=== PATIENT | male | born 1990 | race Two or more races ===

== ENCOUNTER 2023-10-05 11:49 | Outpatient (REF) | payer MEDICAID, SELFPAY ==
[2023-10-05 14:17] LABS: MANUAL DIFF FLAG NO
[2023-10-05 14:22] LABS: Basophils Percent Auto 0.5 % (0-2); Eosinophils Absolute Auto 0.1 X10*3/uL (0.0-0.4); Eosinophils Percent Auto 1.4 % (0-4); Hematocrit 43.1 % (42.0-52.0); Hemoglobin 14.4 g/dl (14.0-18.0); Imm Gran Abs Auto 0.02 X10*3/uL (0.00-0.03); Imm Gran Pct Auto 0.3 % (0.0-0.4); Lymphocytes Percent Auto 25.3 % (20-40); Mean Corpuscular HGB Conc 33.4 g/dl (31.0-36.0); Mean Corpuscular Hemoglobin 30.4 pg (27.0-33.0); Mean Corpuscular Volume 90.9 fL (80.0-98.0); Mean Platelet Volume 9.5 fL (9.4-12.4); Monocytes Absolute Auto 0.4 X10*3/uL (0.1-1.2); Neutrophils Absolute Auto 5.3 x10*3/uL (2.0-8.3); Neutrophils Percent Auto 67.5 % (45-73); Platelet Count 317 X10*3/uL (160-400); Red Blood Count 4.74 X10*6/uL (4.60-5.80); Red Cell Distribution Width 13.8 % (11.0-16.0); White Blood Count 7.8 X10*3/uL (4.8-10.8)
[2023-10-05 16:11] LABS: Alanine Aminotransferase 63 U/L (0-40); Albumin Level 4.2 g/dL (3.5-5.0); Alkaline Phosphatase 56 U/L (39-117); Anion Gap 14 (12-20); Aspartate Amino Transferase 35 U/L (5-37); Bilirubin Total 0.4 mg/dL (0.0-1.0); Blood Urea Nitrogen 13 mg/dL (9-16); Calcium 9.2 mg/dL (8.4-10.2); Carbon Dioxide 27 mmol/L (22-29); Chloride 104 mmol/L (96-108); Estimated Glomerular Filt Rate > 60; Glucose Random 82 mg/dL (60-115); Potassium 3.8 mmol/L (3.3-5.1); Sodium 141 mmol/L (135-145); Total Protein 7.2 g/dL (6.5-8.0)
== END 2023-10-05 11:50 | disposition home or self-care (01) ==
LOC: HO.CHCLDS 11:49
PROVIDERS: Visit Provider Internal Medicine
DX: F19.10 Other psychoactive substance abuse, uncomplicated (principal); D50.9 Iron deficiency anemia, unspecified
CPT/HCPCS: 36415; 80053; 83735; 85025

== ENCOUNTER 2024-03-01 12:42 | Outpatient (REF) | payer MEDICAID, SELFPAY ==
[2024-03-01 15:47] LABS: Alanine Aminotransferase 56 U/L (0-40); Alkaline Phosphatase 56 U/L (39-117); Anion Gap 13 (12-20); Aspartate Amino Transferase 64 U/L (5-37); Bilirubin Direct 0.2 mg/dL (0.0-0.5); Bilirubin Total 0.5 mg/dL (0.0-1.0); Blood Urea Nitrogen 8 mg/dL (9-16); C Reactive Protein 0.18 mg/dL (< or = 0.50); Calcium 9.5 mg/dL (8.4-10.2); Carbon Dioxide 28 mmol/L (22-29); Chloride 108 mmol/L (96-108); Cholesterol 208 mg/dL (<200); Estimated Glomerular Filt Rate > 60; Glucose Fasting 79 mg/dL (60-99); HDL Cholesterol 60 mg/dL (>40); LDL Cholesterol Calculated 107 mg/dL (<100); Potassium 3.7 mmol/L (3.3-5.1); Sodium 145 mmol/L (135-145); Total Protein 6.9 g/dL (6.5-8.0); Triglycerides 209 mg/dL (<150); Uric Acid 11.1 mg/dL (3.4-7.0)
[2024-03-01 15:58] LABS: TSH reflex Free T4 0.42 uIU/mL (0.32-4.0)
== END 2024-03-01 12:43 | disposition home or self-care (01) ==
LOC: HO.CHCLDS 12:42
PROVIDERS: Visit Provider Pediatrics
DX: M10.00 Idiopathic gout, unspecified site (principal); I10 Essential (primary) hypertension; R74.01 Elevation of levels of liver transaminase levels
CPT/HCPCS: 36415; 80048; 80061; 80076; 84443; 84550; 86140

== ENCOUNTER 2024-09-21 15:47 | Outpatient (REF) | payer MEDICAID, SELFPAY ==
--- OUTSIDE RECORDS SUMMARY | 2024-09-21 16:44 | XMS_ITS | Encounter Summary ---
Author Organization [employer] Address [address] [facility] [address] 7t [place] [address] Care Team Providers Care Apprentice Carpenter Name Role Phone Bertha Ryan MD Primary Care Provider [phone] Yari Johnson Unavailable Unavailable Alana Gonsalez RN Unavailable [phone] Encounter Details Date Type Department Care Team (Latest Contact Info) Description 08/30/2024 Travel Social History Tobacco Use Types Packs/Day Years Used Date Smoking Tobacco: Never Passive Smoke Exposure: Never Smokeless Tobacco: Never Alcohol Use Standard Drinks/Week Comments Defer 0 (1 standard drink = 0.6 oz pur e alcohol) Alcohol Answer Date Recorded How often do you have a drink containing alcohol ? 4 10/07/2023 How many drinks containing a lcohol do you have on a typical day when you are drinking? 2 10/07/2023 How often do you have six or more drinks on one occasion? 2 10/07/2023 Depression Answer Date Recorded Patient Health Questionnaire-9 Score 3 10/28/2023 Patient Health Questionnaire-9 Score 3 10/28/2023 Last PHQ-9: Questionnaire Data Not on file 0 10/28/2023 Housing Stability Answer Date Recorded What is your housing situation today? I do not have housing (Staying with others, in a hotel, in a [place] [facility] [place], living outside on the street, on a beach, in a car, or in a park 12/01/[address] you li ve. Do you have problems with any of the following? Water leaks;Oven or stove not working 12/01/2023 Food Insecurity Answer Date Recorded Within the past 12 months, y ou worried that your food would run out before you got money to buy more: Often true 12/01/2023 Within the past 12 months,th e food you bought just didn't last and you didn't have enough money to get more: Often true 08/2023 Transportation Answer Date Recorded In the past 12 months, has l ack of transportation kept you from medical appts, meetings, work or from getting things needed for daily living? Yes, it has kept me from medical appointments or getting medications. 12/01/2023 Utilities Answer Date Recorded In the past 12 months, has t he electric, gas, oil or water company threatened to shut off services in your home? I am not sure 12/01/2023 Depression Answer Date Recorded Patient Health Questionnaire-2 Score 0 10/28/2023 Sex and Gender Information Value Date Recorded Sex Assigned at Male 09/09/2023 2:09 PM EST Legal Sex Male 2:07 PM EST Gender Identity Male 09/09/2023 2:09 PM EST Sexual Orientation Straight 10/05/2023 10 :33 AM EST documented as of this encounter Plan of Treatment Upcoming Encounters Date Type Department Care Team (Late st Contact Info) Description 10/06/2024 1:00 PM EST Office Visit [facility] [address] [place] [address] Armin Carter MD [address] [place] [address] documented as of this encounter Visit Diagnoses Not on filedocumented in this encounter Additional Health Concerns Assessment Noted Time PHQ-9 Depression Total Score: 3 10/28/19 24 9:38 AM EDT documented as of this encounter Care Teams Apprentice Carpenter Relationship Specialty Start Date End Date Bertha Ryan MD [address] [place] [address] PCP - General Internal Medicine 10/28/23 Yari Johnson Community Health Worker 01/03/24 Alana Gonsalez, BRODY [address] [place] [address] Quarry Manager 01/03/24 Corby Duran Quarry ManagerFuse Cutter 04/26/24 documented as of this encounter
--- OUTSIDE RECORDS SUMMARY | 2024-09-21 16:44 | XMS_ITS | Encounter Summary ---
Author Organization [employer] Address 75 [facility] 7t [place] [address] Care Team Providers Care Sourcing Specialist Name Role Phone Bertha Ryan MD Primary Care Provider Yari Johnson Unavailable Unavailable Alana Gonsalez RN Unavailable [phone] Reason for Referral * Consultation (Routine) - Closed Specialty Diagnoses / Procedures Referred By Contac t Referred To Contact Behavioral Health Diagnoses Alcohol use, unspecified, uncomplicated Anxiety Bertha Ryan MD [address] [place] [address] Phone: tel: fax: Referral ID Status Reason Start Date Expiration Date V isits Requested Visits Authorized [id number] Closed Specialty Services Required 08/30/2024 08/30/2025 1 1 Encounter Details Date Type Department Care Team (Late st Contact Info) Description 08/30/2024 11:30 AM EST Office Visit [facility] [address] [place] [address] Bertha Ryan MD [address] [place] [address] Anterior shoulder pain (Primary Dx); Seizure disorder (CMS/HCC); Patent foramen ovale; Dietary counseling; Exercise counseling; Alcohol use, unspecified, uncomplicated; Anxiety Social History Tobacco Use Types Packs/Day Years [...] with others, in a hotel, in a [facility], living outside on the street, on a [...] AM EST documented as of this encounter Last Filed Vital Signs Vital Sign Reading Time Taken Comments Blood Pressure 149/99 08/30/2024 11:35 AM EST Pulse 97 08/30/2024 11:35 AM EST Temperature 37.1 ??C (98.8 ??F) 08/30/2024 11:[address] Respiratory Rate 20 08/30/2024 11:35 AM EST Oxygen Saturation 96% 08/30/2024 11:35 AM EST Inhaled Oxygen Concentration - - Weight 124 kg (274 lb) 08/30/2024 11:35 AM EST Height 171.1 cm (5' 7.38 ) 08/30/2024 11:[address] Body Mass Index 42.43 08/30/2024 11:35 AM EST documented in this encounter Progress Notes * Bertha Ryan MD - 08/30/2024 11:30 AM EST Subjective Patient ID: Ronnell Graves is a 34 y.o. male who presents for follow up. Ronnell is a 34 y/o male patient of mine here for follow up.Doing well with oral naltrexone for alcoholism.Seeing at [facility]. Sees neuro in 2 days for SZD.No seizures since on keppra.Needs his labs drawn. BP log from home reviewed. Mostly in range while on 20 mg lisinopril daily.Lost some weight since not drinking heavily any longer.C/O left anterior shoulder pain since his fall after his first seizure episode months ago.Taking tylenol prn which helps. 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 HENT: Negative for trouble swallowing. Respiratory: Negative for cough, shortness of breath and wheezing. Cardiovascular: Negative for chest pain, palpitations and leg swelling. Gastrointestinal: Negative for abdominal pain and blood in stool. Endocrine: Negative for polydipsia and polyuria. Genitourinary: Negative for decreased urine volume, difficulty urinating, dysuria and hematuria. Musculoskeletal: Positive for arthralgias. Negative for gait problem. Skin: Negative for color change and rash. Neurological: Negative for dizziness and headaches. Hematological: Negative for adenopathy. Psychiatric/Behavioral: Negative for dysphoric mood, hallucinations, sleep disturbance and suicidalideas. The patient is nervous/anxious. Objective BP (!) 149/99 (BP Location: Left arm, Patient Position: Sitting, BP Cuff Size: Large adult) Pulse 97 Temp 98.8 ??F (37.1 ??C) (Oral) Resp 20 Ht 5' 7.38 (1.711 m) Wt 274 lb (124 kg) SpO2 96% BMI 42.43 kg/m?? Physical Exam Vitals reviewed. Cardiovascular: Heart sounds: Normal heart sounds. Pulmonary: Effort: Pulmonary effort is normal. Breath sounds: Normal breath sounds. Musculoskeletal: Left shoulder: Tenderness present. No crepitus. Decreased range of motion. Right lower leg: No edema. Left lower leg: No edema. Neurological: Mental Status: He is alert. Assessment/Plan Diagnoses and all orders for this visit: Anterior shoulder pain Comments: Since his fall after his seizure episode.Xray ordered today to rule out fracture.Exam shows anterior tenderness and limited ROM. Refill tylenol prn. Refer to PT/ortho depending on results and response to meds. Etc.. Orders: - XR Shoulder 2+ Views Left; Future Seizure disorder (CMS/HCC) Comments: Denies any more episodes since on meds.Needs labs drawn today,has neurology visit in 2 days,plans to keep visit. Patent foramen ovale Dietary counseling Exercise counseling Alcohol use, unspecified, uncomplicated Comments: Seeing , doing great on oral naltrexone.From large amount of hard liquor to maybe 1 beer every other day.Denies withdrawal symtoms.Agrees to behavior therapist referral. Orders: - Referral to Behavioral Health; Future Anxiety Comments: Referral to Behavior therapist done today. Orders: - Referral to Behavioral Health; Future documented in this encounter Plan of Treatment Upcoming Encounters Date Type Department Care Team (Late st Contact Info) Description 10/06/2024 1:00 PM EST Office Visit [facility] [address] [place] [address] Armin Carter MD [address] [place] [address] Scheduled Orders Name Type Priority Associated Diagnoses Orde r Schedule XR Shoulder 2+ Views Left Imaging Routine Anterior shoulder pain Expected: 08/30/2024, Expires: 08/30/2025 Scheduled Referrals Name Type Priority Associated Diagnoses Order Schedule Referral to Behavioral Health Outpatient Referral Routine Alcohol use, unspecified, uncomplicated Anxiety Expected: 08/30/2024 (Approximate), Expires: 08/30/2025 documented as of this encounter Visit Diagnoses Diagnosis Anterior shoulder pain- Primary Seizure disorder (CMS/HCC) Unspecified epilepsy without mention of intractable epilepsy Patent foramen ovale Ostium secundum type atrial septal defect Dietary counseling Dietary surveillance and counseling Exercise counseling Alcohol use, unspecified, uncomplicated Anxiety Anxiety state, unspecified documented in this encounter Additional Health Concerns Assessment Noted Time PHQ-9 Depression Total Score: 3 10/28/19 9:38 AM EDT documented as of this encounter Care Teams Sourcing Specialist Relationship Specialty Start Date End Date Bertha Ryan MD [address] [place] [address] PCP - General Internal Medicine 10/28/23 Yari Johnson Community Health Worker 01/03/24 Alana Gonsalez RN [address] [place] [address] [employer] Hospitalist 01/03/24 Corby Duran [employer] HospitalistPolicy Analyst 04/26/24 documented as of this encounter
--- OUTSIDE RECORDS SUMMARY | 2024-09-21 16:44 | XMS_ITS | Encounter Summary ---
Author Organization [employer] Address [address] [facility] 7t [place] [address] Care Team Providers Care Grinding Operator Name Role Phone Bertha Ryan MD Primary Care Provider [phone] Yari Johnson Unavailable Unavailable Alana Gonsalez RN Unavailable [phone] Reason for Visit * Reason Comments Med Refill Encounter Details Date Type Department Care Team ([facility] st Contact Info) Description 08/30/2024 Refill [facility] [address] [place] [address] Bertha Ryan MD [address] [place] [address] Social History Tobacco Use Types Packs/Day Years [...] with others, in a hotel, in a custodial, living outside on the street, on a [...] Description 10/06/2024 1:00 PM EST Office Visit [facility] [address] [place] [address] Armin Carter MD [address] [place] [address] documented as of this encounter Visit Diagnoses Not on filedocumented in this encounter Additional Health Concerns Assessment Noted Time PHQ-9 Depression Total Score: 3 10/28/19 24 9:38 AM EDT documented as of this encounter Care Teams Grinding Operator Relationship Specialty Start Date End Date Bertha Ryan MD [address] [place] [address] PCP - General Internal Medicine 10/28/23 Yari Johnson Community Health Worker 01/03/24 Alana Gonsalez RN [address] [place] [phone] Entry Level Accounting Clerk 01/03/24 Corby Duran Entry Level Accounting ClerkWaiter Waitress 04/26/24 documented as of this encounter
--- OUTSIDE RECORDS SUMMARY | 2024-09-21 16:44 | XMS_ITS | Encounter Summary ---
Author Organization [employer] Address 75 [facility] 7t [place] [address] Care Team Providers Care Coastal/Harbor Defense Officer Name Role Phone Bertha Ryan MD Primary Care Provider Yari Johnson Unavailable Unavailable Alana Gonsalez RN Unavailable [phone] Encounter Details Date Type Department Care Team (Late st Contact Info) Description 10/01/2023 Telephone [facility] [address] [place] [address] [phone] Bertha Ryan MD [address] [place] [address] Social History Tobacco Use Types Packs/Day Years Used Date Smoking Tobacco: Never Assessed Sex and Gender Information Value Date Recorded Sex Assigned at Male 09/09/2023 2:09 PM EST Legal Sex Male 2:07 PM EST Gender Identity Male 09/09/2023 2:09 PM EST Sexual Orientation Straight 10/05/2023 10 :33 AM EST documented as of this encounter Miscellaneous Notes * Telephone Encounter - Misha Wills - 10/01/2023 11:21 AM EST Tc from pt stating they received a call but didn't leave a message and publications writer doesn't see anything tasked. documented in this encounter Plan of Treatment Upcoming Encounters Date Type Department Care Team (Late st Contact Info) Description 10/06/2024 1:00 PM EST Office Visit [facility] [address] [place] [address] [phone] Armin Carter MD [address] [place] [address] documented as of this encounter Visit Diagnoses Not on filedocumented in this encounter Care Teams Coastal/Harbor Defense Officer Relationship Specialty Start Date End Date Bertha Ryan MD [address] [place] [address] PCP - General Internal Medicine 10/28/23 Yari Johnson Community Health Worker 01/03/24 Alana Gonsalez, BRODY [address] [place] [address] Intern Product Marketing Manager 01/03/24 Corby Duran Intern Product Marketing ManagerExtractor Plant Operator 04/26/24 documented as of this encounter
--- OUTSIDE RECORDS SUMMARY | 2024-09-21 16:44 | XMS_ITS | Encounter Summary ---
Author Organization [employer] Address 75 [facility] 7t [place] [address] Care Team Providers Care Waste Water Worker Name Role Phone Bertha Ryan MD Primary Care Provider [phone] Yari Johnson Unavailable Unavailable Alana Gonsalez RN Unavailable [phone] Reason for Visit * Reason Comments Med Change Request Encounter Details Date Type Department Care Team ([facility] Contact Info) Description 10/28/2023 Refill [facility] [address] [place], [place] [phone] Bertha Ryan MD [address] [place] [address] Social History Tobacco Use Types Packs/Day Years Used Date Smoking Tobacco: Never Smokeless Tobacco: Never Alcohol Use Standard [...] What is your housing situation today? I have bella patel 10/20/[address] you li ve. Do you have problems with any of the following? None of the above 10/20/2023 Food Insecurity Answer Date Recorded Within the past 12 months, y ou worried that your food would run out before you got money to buy more: Never True 10/20/2023 Within the past 12 months,th e food you bought just didn't last and you didn't have enough money to get more: Never True Transportation Answer Date Recorded In the past 12 months, has l ack of transportation kept you from medical appts, meetings, work or from getting things needed for daily living? No 10/20/2023 Utilities Answer Date Recorded In the past 12 months, has t he electric, gas, oil or water company threatened to shut off services in your home? No 10/20/2023 Depression Answer Date Recorded Patient Health Questionnaire-2 [...] Description 10/06/2024 1:00 PM EST Office Visit [facility] [address] [place] [address] Armin Carter MD [address] [place] [address] documented as of this encounter Visit Diagnoses Not on filedocumented in this encounter Additional Health Concerns Assessment Noted Time PHQ-9 Depression Total Score: 3 10/28/19 9:38 AM EDT documented as of this encounter Care Teams Waste Water Worker Relationship Specialty Start Date End Date Bertha Ryan MD [address] [place] [address] PCP - General Internal Medicine 10/28/23 Yari Johnson Community Health Worker 01/03/24 Alana Gonsalez RN [address] [place] [address] Poultry Debeaker 01/03/24 Corby Duran Poultry DebeakerChronic Care Nurse 04/26/24 documented as of this encounter
--- OUTSIDE RECORDS SUMMARY | 2024-09-21 16:44 | XMS_ITS | Encounter Summary ---
Author Organization [employer] Address 75 [facility] 7t [place] [address] Care Team Providers Care Investor Relations Associate Name Role Phone Bertha Ryan MD Primary Care Provider [phone] Yari Johnson Unavailable Unavailable Alana Gonsalez RN Unavailable [phone] Encounter Details Date Type Department Care Team (Late st Contact Info) Description 12/01/2023 Orders Only [facility] [address] [place] [address] ProviderCarlos Manuel MD Social History Tobacco Use Types Packs/Day Years [...] with others, in a hotel, in a group home, living outside on the street, on a [...] Description 10/06/2024 1:00 PM EST Office Visit [facility] [address] [place] [address] Armin Carter MD [address] [place] [address] documented as of this encounter Procedures Procedure Name Priority Date/Time Associated Diagnosis Comments VAS US LOWER EXTREMITY VENOUS DUPLEX UNILATERAL Routine 11/30/2023 8:43 AM EDT documented in this encounter Results * VAS US Lower Extremity Venous Duplex Unilateral (11/30/2023 8:43 AM EDT) us Historical Provider CV VASCULAR PROCEDURES Fi nal Result documented in this encounter Visit Diagnoses Not on filedocumented in this encounter Additional Health Concerns Assessment Noted Time PHQ-9 Depression Total Score: 3 10/28/19 24 9:38 AM EDT documented as of this encounter Care Teams Investor Relations Associate Relationship Specialty Start Date End Date Bertha Ryan MD [address] [place] [address] PCP - General Internal Medicine 10/28/23 Yari Johnson Community Health Worker 01/03/24 Alana Gonsalez, BRODY [address] [place] [address] Trim Die Maker 01/03/24 Corby Duran Trim Die MakerNews Clerk 04/26/24 documented as of this encounter
--- OUTSIDE RECORDS SUMMARY | 2024-09-21 16:44 | XMS_ITS | Encounter Summary ---
Author Organization [employer] Address 75 [facility] 7t [place] [address] Care Team Providers Care Drilling Contractor Name Role Phone Bertha Ryan MD Primary Care Provider [phone] Yari Johnson Unavailable Unavailable Alana Gonsalez RN Unavailable [phone] Reason for Referral * Imaging (Routine) - Closed Specialty Diagnoses / Procedures Referred By Contac t Referred To Contact Radiology Diagnoses Transaminitis Procedures US Abdomen Complete Bon Jaeger MD [address] [place] [address] Phone: tel: fax: Diagnostic Imaging, [facility] [address] [place] [address] Phone: tel: fax: Referral ID Status Reason Start Date Expiration Date Visits Re quested Visits Authorized [id number] Closed 10/08/2023 10/07/2024 1 1 Encounter Details Date Type Department Care Team (Late st Contact Info) Description 10/08/2023 Orders Only [facility] [address] [place] [address] Bon Jaeger MD [address] [place] [phone] Transaminitis (Primary Dx) Social History Tobacco Use Types Packs/Day Years Used Date Smoking Tobacco: Never Smokeless Tobacco: Never Alcohol Answer Date Recorded How often do you have a drink containing alcohol ? 4 10/07/2023 How many drinks containing a lcohol do you have on a typical day when you are drinking? 2 10/07/2023 How often do you have six or more drinks on one occasion? 2 10/07/2023 Depression Answer Date Recorded Patient Health Questionnaire-9 Score 4 10/07/2023 Patient Health Questionnaire-9 Score 4 10/07/2023 Last PHQ-9: Questionnaire Data Not on file 0 10/07/2023 Depression Answer Date Recorded Patient Health Questionnaire-2 Score 0 10/07/2023 Sex and Gender Information Value Date Recorded Sex Assigned at Male 09/09/2023 2:09 PM EST Legal Sex Male 2:07 PM EST Gender Identity Male 09/09/2023 2:09 PM EST Sexual Orientation Straight 10/05/2023 10 :33 AM EST documented as of this encounter Plan of Treatment Upcoming Encounters Date Type Department Care Team ([facility] st Contact Info) Description 10/06/2024 1:00 PM EST Office Visit [facility] [address] [place] [address] Armin Carter MD [address] [place] [address] Scheduled Orders Name Type Priority Associated Diagnoses Orde r Schedule US Abdomen Complete Imaging Routine Transaminitis Expected: 10/08/2023, Expires: 10/07/2024 Hepatitis A,B,C Profile Lab Routine Transaminitis Expected: 10/08/2023, Expires: 10/07/2024 documented as of this encounter Visit Diagnoses Diagnosis Transaminitis- Primary Nonspecific elevation of levels of transaminase or lactic acid dehydrogenase (LDH) documented in this encounter Additional Health Concerns Assessment Noted Time PHQ-9 Depression Total Score: 4 10/07/19 24 11:27 AM EST documented as of this encounter Care Teams Drilling Contractor Relationship Specialty Start Date End Date Bertha Ryan MD [address] [place] [address] PCP - General Internal Medicine 10/28/23 Yari Johnson Community Health Worker 01/03/24 Alana Gonsalez RN [address] [place] [address] Band Straightener 01/03/24 Corby Duran Band StraightenerInstitutional Cook 04/26/24 documented as of this encounter
--- OUTSIDE RECORDS SUMMARY | 2024-09-21 16:44 | XMS_ITS | Encounter Summary ---
Author Organization [employer] Address 75 [facility] 7t [place] [address] Care Team Providers Care Loom Control Chain Builder Name Role Phone Bertha Ryan MD Primary Care Provider [phone] Yari Johnson Unavailable Unavailable Alana Gonsalez RN Unavailable [phone] Reason for Visit * Reason Onset Date Comments FYI 10/13/2023 Encounter Details Date Type Department Care Team ([facility] st Contact Info) Description 10/13/2023 Telephone [facility] 230 [place], [place] [phone] Douglas Alfonso MD [address] [place] [address] FYI Social History Tobacco Use Types Packs/Day Years [...] encounter Miscellaneous Notes * Telephone Encounter - Wing Marc RN - 10/18/2023 1:27 PM EDT Tc to Gertrude regarding messaged from Dr. Ryan, unable to reach Gertrude. Left message for her to call back. * Telephone Encounter - Wing Marc RN - 10/14/2023 4:04 PM EDT Please advise, tc to Gertrude who reported normal evaluation with HR of 80 BPM at [facility], few days later during treatment, HR was 125 at rest after exercise. After 5 mins of more rest, pt's HR wasat 122. Gertrude wanted to let PCP know since pt has a history of stroke. She also stated that they would keep an eye on pt and malou call back if there were any further updated. * Telephone Encounter - Wing Marc RN - 10/14/2023 9:42 AM EDT Tc to Gertrude regarding previous message. Unable to reach Gertrude. Left message for her to call back. * Telephone Encounter - Felton Mullins - 10/13/2023 4:20 PM EDT Tc from Gertrude PT with [facility] reporting started PT and informs pt is doing well and is A symptomatic response but his Heart levels were a High first taken was 125 and after a 5 min rest heart was 122. Please contact Gertrude @ [phone] documented in this encounter Plan of Treatment Upcoming Encounters Date Type Department Care Team (Late st Contact Info) Description 10/06/2024 1:00 PM EST Office Visit [facility] [address] [place] [address] Armin Carter MD [address] [place] [address] documented as of this encounter Visit Diagnoses Not on filedocumented in this encounter Additional Health Concerns Assessment Noted Time PHQ-9 Depression Total Score: 4 10/07/19 24 11:27 AM EST documented as of this encounter Care Teams Loom Control Chain Builder Relationship Specialty Start Date End Date Bertha Ryan MD [address] [place] [address] PCP - General Internal Medicine 10/28/23 Yari Johnson Community Health Worker 01/03/24 Alana Gonsalez, BRODY [address] [place] [address] Metal Spray Operator 01/03/24 Corby Duran Metal Spray OperatorCreative Art Therapist 04/26/24 documented as of this encounter
--- OUTSIDE RECORDS SUMMARY | 2024-09-21 16:44 | XMS_ITS | Clinical Summary ---
Author Organization [employer] Address [address] [facility] [address] [place] [address] Care Team Providers Care Railroad Operator Name Role Phone Bertha Ryan MD Primary Care Provider Yari Johnson Unavailable Unavailable Alana Gonsalez RN Unavailable [phone] Allergies No known active allergies Medications * This document contains information received from the source organization and may not represent a complete record from that organization. Multiple Vitamin (Multivitamin Adult) tabletIndicatio ns:Polysubstanc e abuse (CMS/HCC),Micro cytic anemia 1 tab once a day 30 tablet 11 10/28/19 24 Active lidocaine (Lidoderm) 5 % patch Apply 1 patch topically in the morning. Remove & discard patch within 12 hours or as directed by . 30 patch 3 10/28/19 24 Active Blood Pressure kit 1 each 2 times daily. 1 kit 12/17/19 24 025 Active allopurinol (Zyloprim) 300 MG tabletIndicatio ns:Chronic gout of left foot, unspecified cause Take 1 tablet (300 mg) by mouth Once per day. 30 tablet 11 03/22/20 24 025 Active D3-1000 25 MCG (1000 UT) capsuleIndicati ons:Polysubstan ce abuse (CMS/HCC),Micro cytic anemia TAKE 1 CAPSULE (25 MCG) BY MOUTH IN THE MORNING. 90 capsule 2 03/28/20 24 Active Aspirin Low Dose 81 MG EC tablet Take 81 mg by mouth Once per day. 03/22/20 24 Active levETIRAcetam (Keppra) 500 MG tablet Take 2 tablets (1,000 mg) by mouth 2 times daily. 120 tablet 3 07/13/20 24 Active thiamine (Vitamin B-1) 100 MG tabletIndicatio ns:Polysubstanc e abuse (CMS/HCC),Micro cytic anemia Take 1 tablet (100 mg) by mouth Once per day. 90 tablet 3 07/13/20 24 Active pyridoxine (Vitamin B-6) 50 MG tabletIndicatio ns:Polysubstanc e abuse (CMS/HCC),Micro cytic anemia Take 1 tablet (50 mg) by mouth in the morning. 90 tablet 1 07/13/20 24 Active lisinopril 20 MG tablet Take 1 tablet (20 mg) by mouth Once per day. 30 tablet 11 07/13/20 24 025 Active folic acid (Folvite) 1 MG tablet Take 1 tablet (1,000 mcg) by mouth Once per day. 90 tablet 1 07/13/20 24 Active Melatonin 10 MG capsule Take 1 capsule orally nightly 30 capsule 11 07/13/20 24 Active naltrexone (Depade) 50 MG tabletIndicatio ns:Alcohol use disorder, severe, dependence (CMS/HCC) Take 1 tablet (50 mg) by mouth Once per day. 30 tablet 2 08/18/19 25 025 Active acetaminophen (Tylenol) 325 MG tablet TAKE 2 TABLETS BY MOUTH EVERY 6-8 HOURS IF NEEDED FOR MILD PAIN 60 tablet 5 08/30/19 25 Active acetaminophen (Tylenol) 325 MG tablet TAKE 2 TABLETS BY MOUTH EVERY 6-8 HOURS IF NEEDED FOR MILD PAIN 60 tablet 2 06/26/20 24 025 Discontinued(Re order (will not trigger notification to Pharmacy)) Active Problems Problem Noted Date Diagnosed Date Seizure disorder 08/30/2024 Patent foramen ovale 08/30/2024 Chronic gout of left foot 12/17/2023 H/O ischemic right MCA stroke 10/28/2023 Transaminitis 10/28/2023 Stimulant use disorder 10/07/2023 Alcohol use, unspecified, uncomplicated 10/07/19 Assessment & Plan (10/07/2023 12:08 PM EST): PROGRESS NOTE: ID: Ronnell is a 33 y.o. White straight-identified cis-male with No previous hx of MH dx or sx , hx of MH services in childhood, history of DCF involvement including foster care services; who presents for alcohol use and substance use. Recent single episode of stroke on 09/05/23. During IBH Consult Ronnell presenting with unsuccessful attempt/s to cut down/stop use, cravings and urges to use, continued use even when hazardous or dangerous , continued use despite physical or psychological problem (potentially related or made worse by use) , withdrawal sxs , in regard to Alcohol and Stimulants ; for a period of 18+ mo, for all symptoms in the context of trauma in childhood that leads to history of legal issues, history of substance use and recent stroke on 09/05/23. PLAN: New/Additional Services needed Off-site services for Behavioral Health Integration Plan External OP therapy referral Patient Self Plan Patient to utilize skills provided in intervention and Patient to reach out to [facility] team as needed Encounters * This document contains information received from the source organization and may not represent a complete record from that organization. Date Type Department Care Team Description 08/30/2024 11:30 AM EST Office Visit [facility] [address] [place] [address] Bertha Ryan MD Anterior shoulder pain (Primary Dx); Seizure disorder (CMS/HCC); Patent foramen ovale; Dietary counseling; Exercise counseling; Alcohol use, unspecified, uncomplicated; Anxiety 08/30/2024 Refill [facility] [address] [place] [phone] Bertha Ryan MD 08/30/2024 Travel 08/18/2024 2:00 PM EST Telemedicine [address] [address] Armin Carter MD Alcohol use disorder, severe, dependence (CMS/HCC) 08/18/2024 Travel 08/11/2024 1:15 PM EST Office Visit [address] [address] Armin Carter MD Alcohol use disorder, severe, dependence (CMS/HCC) (Primary Dx); Chronic gout of left foot, unspecified cause 08/11/2024 Patient Outreach [address] [address] Dmit[facility] 08/11/2024 Travel 07/31/2024 Telephone [facility] [address] [place] [address] Bon Jaeger MD 07/13/2024 10:30 AM EST Office Visit [facility] [address] [place] [address] Bertha Ryan MD H/O ischemic right MCA stroke (Primary Dx); Polysubstance abuse (CMS/HCC); Microcytic anemia; Alcohol use, unspecified, uncomplicated; Primary hypertension 07/13/2024 Travel 07/11/2024 Telephone [facility] [address] [place] [address] Bertha Ryan MD Chart Prep 07/06/2024 Telephone [facility] [address] [place] [phone] Bertha Ryan MD Nurse Triage 06/26/2024 Telephone [facility] [address] [place] [address] Bertha Ryan MD Medication Question 06/26/2024 Refill [facility] [address] [place] [address] Bertha Ryan MD from Last 3 Months Immunizations Name Administration Dates Next Due Tdap 08/20/2019 Family History Medical History Relation Name Comments No Known Problems Brother Diabetes Maternal Grandmother Hypertension Mother No Known Problems Sister Relation Name Status Comments Brother Alive Maternal Grandmother Alive Mother Alive Sister Alive Social History Tobacco Use Types Packs/Day Years Used Date Smoking Tobacco: Never Passive Smoke Exposure: Never Smokeless Tobacco: Never Tobacco Cessation:Counseling Given: Not Answered Alcohol Use Standard Drinks/Week Comments Defer 0 [...] with others, in a hotel, in a mcc, living outside on the street, on a [...] Orientation Straight 10/05/2023 10 :33 AM EST Last Filed Vital Signs Vital Sign Reading [...] Mass Index 42.43 08/30/2024 11:35 AM EST Plan of Treatment Upcoming Encounters Date Type Department Care Team (Late st Contact Info) Description 10/06/2024 1:00 PM EST Office Visit [facility] [address], [place] [phone] Armin Carter MD [address] [place] [address] Health Maintenance Due Date Last Done Comments HIV Screening 1988 Family Planning (PISQ) 2003 Hepatitis C Screening 2006 Hepatitis A Vaccines (1 of 2 - Risk 2-dose series) 2007 Hepatitis B Vaccines (1 of 3 - 19+ 3-dose series) 2007 COVID-19 Vaccine (2023-2 5 season) 2024 Influenza Vaccine (#1) 2024 Alcohol/Substance Use Screening 10/27/2024 10/28/2023 Depression Screening 10/27/2024 10/28/2023, 10/28/2023 SDOH Screening 11/30/2024 12/01/2023 Tobacco Screening 08/11/2025 08/11/2024 Lipid Panel 03/01/2029 03/01/2024 DTaP/Tdap/Td Vaccines (2 - T d or Tdap) 08/20/2029 08/20/2019 Zoster Vaccines (1 of 2) 2038 RSV Patients and Patients Aged 60 years or older (1 - 1-dose 75+ series) 2063 HIB Vaccines Aged Out No longer eligi ble based on patient's age to complete this topic HPV Vaccines Aged Out No longer eligi ble based on patient's age to complete this topic IPV Vaccines Aged Out No longer eligi ble based on patient's age to complete this topic Meningococcal Vaccine Aged Out No gaston robin eligible based on patient's age to complete this topic Pneumococcal Vaccine: Pediatrics (0 to 5 Years) and At-Risk Patients (6 to 49) Years) Aged Out No longer eligible b ased on patient's age to complete this topic RSV under 20 months Aged Out No longe r eligible based on patient's age to complete this topic Rotavirus Vaccines Aged Out No longer eligible based on patient's age to complete this topic Procedures Procedure Name Priority Date/Time Associated Diagnosis Comments POCT ALCOHOL BREATH TEST Routine 08/11/2024 1:54 PM EST Alcohol use disorder, severe, dependence (CMS/HCC) POCT LELO-14 URINE DRUG SCREEN Routine 08/11/2024 1:54 PM EST Alcohol use disorder, severe, dependence (CMS/HCC) LIPID PANEL, STANDARD Routine 03/01/2024 12:00 AM EDT Acute idiopathic gout, unspecified site Elevated blood pressure reading in office with diagnosis of hypertension Transaminitis from Last 3 Months or Most Recently Relevant to Health Maintenance Results * POCT LELO-14 Urine Drug Screen (08/11/2024 1:54 PM EST) THC Positive Cocaine Screen, Urine Positive Opiate Screen, Urine Negative Methamphetamine Screen Urine Negative Amphetamine Screen, Urine Negative Benzodiazepines Screen, Urine Negative Barbiturate Screen, Urine Positive Methadone Screen, Urine Negative Buprenophine Screen, Urine Negative TCA, Urine Negative MDMA Urine Negative ng/mL Oxycodone Screen, Urine Negative Phencyclidine (PCP), Urine Negative Propoxyphene, Urine Negative Fentanyl, Urine Negative Urine Urine specimen obtained by clean catch procedure / Unknown 08/11/2024 1:54 PM EST us Armin Carter MD POINT OF CARE TEST ENTER/EDIT OR DERABLES Final Result * POCT alcohol breath test manually resulted (08/11/2024 1:54 PM EST) Breath Alcohol 0.00 Breath 08/11/2024 1:54 PM EST us Armin Carter MD POINT OF CARE TEST ENTER/EDIT OR DERABLES Final Result * (ABNORMAL) Lipid Panel, Standard (03/01/2024 12:00 AM EDT) Triglycerides 209(H) <150 mg/dL [facility] Comment:Desirable Triglyceri de: less than 150 mg/dLBorderline High Triglyceride 150-199 mg/dLHigh Triglyceride: 200-499 mg/dLVery High Triglyceride: greater than or equal to 5OO mg/dL Cholesterol 208(H) <200 mg/dL [facility] Comment:Desirable Cholestero l: less than 200 mg/dLBorderline High Cholesterol: 200-239 mg/dLHigh Cholesterol: greater than 239 mg/dL LDL Cholesterol Calculated 107(H) <100 mg/dL [facility] Comment:Desirable LDL: less than 100 mg/dLNear Optimal/Above Optimal LDL: 110- 129 mg/dLBorderline High LDL: 130-159 mg/dLHigh LDL: 160-189 mg/dLVery High LDL: greater than or equal to 190 mg/dL HDL Cholesterol 60 >40 mg/dL [facility] Comment:Desirable HDL: great er than 40 mg/dL Note: This HDL assay may give artificially low results in patients with liver disease. Blood Venous blood specimen / Unknown 03/01/2024 03/01/2024 Bertha Ryan MD LAB BLOOD ORDERABLES Final Re sult [facility] [address] [place] [address] [phone] from Last 3 Months or Most Recently Relevant to Health Maintenance Insurance [facility] C3 Care Teams Railroad Operator Relationship Specialty Start Date End Date Bertha Ryan MD [address] [place] [phone] PCP - General Internal Medicine 10/28/23 Yari Johnson Community Health Worker 01/03/24 Alana Gonsalez RN [address] [place] [phone] Pool Manager 01/03/24 Corby Duran Pool ManagerSurgical Supervisor 04/26/24
--- OUTSIDE RECORDS SUMMARY | 2024-09-21 16:44 | XMS_ITS | Encounter Summary ---
Author Organization [employer] Address [address] [facility] [address] [place] [address] Care Team Providers Care Doula Name Role Phone Bertha Ryan MD Primary Care Provider [phone] Yari Johnson Unavailable Unavailable Alana Gonsalez RN Unavailable [phone] Reason for Visit * Reason Onset Date Comments Nurse Triage 07/06/2024 Encounter Details Date Type Department Care Team ([facility] st Contact Info) Description 07/06/2024 Telephone [facility] [address] [place] [address] Bertha Ryan MD [address] [place] [address] Nurse Triage Social History Tobacco Use Types Packs/Day Years [...] with others, in a hotel, in a chcf, living outside on the street, on a [...] * Telephone Encounter - Misha Wills - 07/06/2024 11:25 AM EST Symptoms: Arm Pain - Not From Injury, Sleeping Difficulty Outcome: Schedule an urgent appointment (within 1 hour) or talk to a nurse or provider soon Reason: Can't use the arm normally documented in this encounter Plan of Treatment Upcoming Encounters Date Type Department Care Team (Late st Contact Info) Description 10/06/2024 1:00 PM EST Office Visit [facility] [address] [place], [place] [phone] Armin Carter MD [address] [place] [address] documented as of this encounter Visit Diagnoses Not on filedocumented in this encounter Additional Health Concerns Assessment Noted Time PHQ-9 Depression Total Score: 3 10/28/19 9:38 AM EDT documented as of this encounter Care Teams Doula Relationship Specialty Start Date End Date Bertha Ryan MD [address] [place] [address] PCP - General Internal Medicine 10/28/23 Yari Johnson Community Health Worker 01/03/24 Alana Gonsalez RN [address] [place] [address] Manual Tester 01/03/24 Corby Duran Manual TesterClassifying Machine Operator 04/26/24 documented as of this encounter
[2024-09-21 17:58] LABS: MANUAL DIFF FLAG NO
[2024-09-21 18:18] LABS: Basophils Absolute Auto 0.1 X10*3/uL (0.0-0.2); Eosinophils Absolute Auto 0.1 X10*3/uL (0.0-0.4); Eosinophils Percent Auto 1.9 % (0-4); Hemoglobin 14.3 g/dl (14.0-18.0); Imm Gran Abs Auto 0.02 X10*3/uL (0.00-0.03); Imm Gran Pct Auto 0.3 % (0.0-0.4); Lymphocytes Absolute Auto 2.6 X10*3/uL (1.2-4.9); Lymphocytes Percent Auto 38.2 % (20-40); Mean Corpuscular Hemoglobin 31.4 pg (27.0-33.0); Mean Corpuscular Volume 92.1 fL (80.0-98.0); Monocytes Absolute Auto 0.3 X10*3/uL (0.1-1.2); Monocytes Percent Auto 4.3 % (2-11); Neutrophils Absolute Auto 3.6 x10*3/uL (2.0-8.3); Neutrophils Percent Auto 54.3 % (45-73); Platelet Count 237 X10*3/uL (160-400); Red Blood Count 4.56 X10*6/uL (4.60-5.80); Red Cell Distribution Width 13.4 % (11.0-16.0); White Blood Count 6.7 X10*3/uL (4.8-10.8)
[2024-09-21 18:32] LABS: INTERNATIONAL NORM RATIO 0.9 (0.9-1.1); Prothrombin Time 10.5 SEC (10.9-12.4)
[2024-09-21 18:36] LABS: Alanine Aminotransferase 28 U/L (0-40); Albumin Level 4.2 g/dL (3.5-5.0); Alkaline Phosphatase 60 U/L (39-117); Anion Gap 12 (12-20); Aspartate Amino Transferase 36 U/L (5-37); Bilirubin Total 0.6 mg/dL (0.0-1.0); Blood Urea Nitrogen 9 mg/dL (9-16); Calcium 9.4 mg/dL (8.4-10.2); Carbon Dioxide 28 mmol/L (22-29); Chloride 107 mmol/L (96-108); Estimated Glomerular Filt Rate > 60; Glucose Random 79 mg/dL (60-115); Potassium 4.2 mmol/L (3.3-5.1); Sodium 143 mmol/L (135-145); Total Protein 7.2 g/dL (6.5-8.0)
[2024-09-21 18:58] LABS: Folate > 20.0 ng/mL (> or = 4.0); Vitamin B12 292 pg/mL (200-900)
[2024-09-22 08:15] LABS: Hepatitis A Antibody IgG Nonreactive (Nonreactive); ~Hepatitis A Antibody IgG 0.46 S/CO (0.00-0.99)
[2024-09-22 08:33] LABS: HBS Num1 3.93 mIU/mL (0-7.99); HBc Num1 0.06 S/CO (0.00-0.79); HBsAGNum1 0.31 S/CO (0.00-0.99); HIV AB/AG Nonreactive (Nonreactive); HIV Num 1 0.07 S/CO (0.00-0.99); Hepatitis B Core Antibody Nonreactive (Nonreactive); Hepatitis B Surface Antigen Negative (Negative); ~HepC Num1 0.14 S/CO (0.00-0.79); ~Hepatitis B Surface Antibody NONREACTIVE (Nonreactive); ~Hepatitis C Antibody Nonreactive (Nonreactive)
[2024-09-22 08:36] LABS: Syphilis Screen Nonreactive (Nonreactive)
[2024-09-25 06:33] LABS: Methylmalonic Acid 56 nmol/L (55-335)
[2024-09-27 15:48] LABS: Vitamin B6 65.8 ng/mL (2.1-21.7)
== END 2024-09-21 15:48 | disposition home or self-care (01) ==
LOC: HO.CHCLDS 15:47
PROVIDERS: PCP Pediatrics; Referring Provider Family Medicine; Visit Provider Internal Medicine
DX: F10.20 Alcohol dependence, uncomplicated (principal); Z78.9 Other specified health status; M1A.0720 Idiopathic chronic gout, left ankle and foot, without tophus (tophi)
CPT/HCPCS: 36415; 80053; 82607; 82746; 83921; 84207; 84550; 85025; 85610; 86704; 86706; 86708; 86780; 86803; 87340; 87389